=== PATIENT | male | born 1995 | race Caucasian/White ===

== ENCOUNTER 2018-05-18 11:19 | Emergency (ER) | payer MEDICAID, OTHER ==
[~2018-05-18] VITALS: Ht 188 cm; Wt 72.7 kg
[2018-05-18 11:40] VITALS: BP 147/92
== END 2018-05-18 12:33 | disposition left against medical advice (07) ==
LOC: EMS 11:20
DX: H57.12 Ocular pain, left eye (principal)
CPT/HCPCS: 99282

== ENCOUNTER 2020-05-17 18:14 | Emergency (ER) | payer MEDICAID ==
[~2020-05-17] VITALS: Ht 188 cm; Wt 75.0 kg
[2020-05-17 19:26] LABS: BASOPHILS % (AUTO) 0.3 % (0.0-2.0); EOSINOPHILS % (AUTO) 0.4 % (1.0-6.0); HEMATOCRIT 43.9 % (41-53); HEMOGLOBIN 14.5 g/dL (13.5-17.5); LYMPHOCYTES # (AUTO) 1.5 K/uL (1.0-4.8); LYMPHOCYTES % (AUTO) 20.5 % (22.0-44.0); MEAN CORPUSCULAR HGB CONC 32.9 G/dL (31.0-37.0); MEAN CORPUSCULAR VOLUME 88 fL (80-100); MONOCYTES # (AUTO) 0.7 K/uL (0.1-1.0); MONOCYTES % (AUTO) 9.9 % (2.0-9.0); NEUTROPHILS # (AUTO) 5.2 K/uL (1.8-7.7); NEUTROPHILS % (AUTO) 68.9 % (40.0-70.0); PLATELET COUNT (AUTO) 181 K/uL (150-450); RED BLOOD CELL COUNT(AUTO) 4.98 MIL/uL (4.50-5.90); RED CELL DISTRIBUTION WIDTH 13.4 % (11.5-14.5)
[2020-05-17 19:42] LABS: ALANINE AMINOTRANSFERASE 27 U/L (12-78); ALBUMIN 4.3 g/dL (3.4-5.0); ALKALINE PHOSPHATASE 51 U/L (46-116); ANION GAP 12 mmol/L (8-16); ASPARTATE AMINOTRANSFERASE 23 U/L (15-37); BILIRUBIN,TOTAL 1.1 mg/dL (0.1-1.0); CALCIUM, TOTAL 9.5 mg/dL (8.8-10.5); CARBON DIOXIDE 25 mmol/L (22-29); CHLORIDE 101 mmol/L (98-107); CREATININE 1.33 mg/dL (0.60-1.30); GLOMERULAR FILTR. RATE CALC > 60 mL/min (>60); GLUCOSE,RANDOM 171 mg/dL (70-110); SODIUM SERUM 138 mmol/L (136-145); UREA NITROGEN, BLOOD 21 mg/dL (7-18)
[2020-05-17 19:50] LABS: POTASSIUM 2.8 mmol/L (3.5-5.1)
[2020-05-17] MEDS ORDERED: LORazepam 2 MG/ML VIAL IVP ONE (20:00)
[2020-05-17] MEDS ORDERED: POTASSIUM CHLORIDE 10% 40 MEQ/30 ML LIQUID UDCUP PO ONE ×2 (20:20→20:40)
[2020-05-17] MEDS ORDERED: SODIUM CHLORIDE 0.9% 1,000 ML IV ONE (20:30)
[2020-05-17 21:40] VITALS: BP 137/89
== END 2020-05-17 21:41 | disposition home or self-care (01) ==
LOC: EMS 18:15
DX: R00.0 Tachycardia, unspecified (principal); R00.2 Palpitations; F41.9 Anxiety disorder, unspecified; E87.6 Hypokalemia; F12.90 Cannabis use, unspecified, uncomplicated
CPT/HCPCS: 36415; 80053; 85025; 93005; 96361; 96374; 99284; G0480; J2060

== ENCOUNTER 2022-10-03 08:56 | Emergency (ER) | payer MEDICAID ==
[~2022-10-03] VITALS: Ht 188 cm; Wt 77.3 kg
[2022-10-03 09:09] VITALS: BP 125/81
[2022-10-03 09:32] LABS: COVID AG,FIA SOURCE NASAL SWAB
[2022-10-03 09:54] LABS: RAPID GROUP A STREP NEGATIVE (NEGATIVE)
[2022-10-03 09:58] LABS: INFLUENZA TYPE A NEGATIVE FOR TYPE A (NEGATIVE); INFLUENZA TYPE B NEGATIVE FOR TYPE B (NEGATIVE)
[2022-10-03] MEDS ORDERED: ACETAMINOPHEN 500 MG TABLET PO ONE (10:15)
[2022-10-03] MEDS ORDERED: BENZ-70 PO (10:20)
[2022-10-03] MEDS ORDERED: BENZ1LOZ77 PO (10:20)
[2022-10-03] MEDS ORDERED: IBUP-1492 PO (10:20)
== END 2022-10-03 10:28 | disposition home or self-care (01) ==
LOC: EMS 09:14
DX: U07.1 COVID-19 (principal); F12.90 Cannabis use, unspecified, uncomplicated; Z20.822 Contact with and (suspected) exposure to COVID-19
CPT/HCPCS: 87430; 87804; 99283